=== PATIENT | male | born 1995 | race Two or more races ===

== ENCOUNTER 2023-05-25 20:15 | Emergency (ER) | payer MEDICAID ==
[~2023-05-25] VITALS: Ht 167.6 cm; Wt 68.0 kg
[2023-05-25 21:30] VITALS: BP 107/58; TEMP 98.6
[2023-05-25] MEDS ORDERED: CEPH500T PO (21:33)
[2023-05-25] MEDS ORDERED: SULF1TAB48 PO (21:33)
[2023-05-25] MEDS ORDERED: CEPHALEXIN MONOHYDRATE 500 MG CAPSULE PO ONE ×2 (21:36→22:00)
[2023-05-25] MEDS ORDERED: SULFAMETH/TRIMETH 800/160 MG 1 UDTAB TABLET ONE (21:37)
[2023-05-25 21:49] VITALS: O2SAT 98
[2023-05-25] MEDS ORDERED: SULFAMETH/TRIMETH 800/160 MG 1 UDTAB TABLET PO ONE (22:00)
== END 2023-05-25 21:50 | disposition home or self-care (01) ==
LOC: ER 20:29
DX: L03.116 Cellulitis of left lower limb (principal); Z59.00 Homelessness unspecified